=== PATIENT | female | born 1955 | race Caucasian/White ===

== ENCOUNTER 2022-12-29 06:53 | Day surgery (SDC) | payer MEDICARE, BC ==
[~2022-12-29 06:53] MED LIST: Lactated Ringers 1,000 ML IV SCH; Lidocaine 1%/Sod Bicarbonate in NS 8.4% 1 ML Syringe IDERM PRN; Sodium Chloride 0.9% 10 ML Syringe FLUSH PRN; Sodium Chloride 0.9% 10 ML Syringe FLUSH SCH
[2022-12-29] MEDS ORDERED: Bupivacaine 0.25%/EPINEPHrine 1:200,000 30 ML SDV ONE (07:19)
[2022-12-29] MEDS ORDERED: fentaNYL 100 MCG/2 ML SDV ONE (07:24)
[2022-12-29] MEDS ORDERED: Lidocaine 1% 5 ML VIAL ONE (07:24)
[2022-12-29] MEDS ORDERED: Dexamethasone 4 MG/ML 5 ML MDV ONE (07:24)
[2022-12-29] MEDS ORDERED: Midazolam 1 MG/ML 2 ML SDV ONE (07:24)
[2022-12-29] MEDS ORDERED: Rocuronium 50 MG/5 ML Vial ONE (07:24)
[2022-12-29] MEDS ORDERED: Ketorolac 30 MG/ML SDV ONE (07:24)
[2022-12-29] MEDS ORDERED: diphenhydrAMINE 50 MG/ML SDV ONE (07:24)
[2022-12-29] MEDS ORDERED: Ondansetron 4 MG/2 ML SDV ONE (07:24)
[2022-12-29] MEDS ORDERED: Propofol 200 MG/20 ML SDV ONE (07:24)
[2022-12-29] MEDS ORDERED: ceFAZolin 2 GM Vial ONE (07:58)
[2022-12-29] MEDS ORDERED: Lactated Ringers 1,000 ML ONE ×2 (08:07)
[2022-12-29] MEDS ORDERED: ePHEDrine 50 MG/ML SDV ONE (08:09)
[2022-12-29] MEDS ORDERED: Ondansetron 4 MG/2 ML SDV IVPUSH PRN ×2 (08:16→08:26)
[2022-12-29] MEDS ORDERED: HYDROmorphone 0.5 MG/0.5 ML Syringe IVPUSH PRN (08:16)
[2022-12-29] MEDS ORDERED: fentaNYL 100 MCG/2 ML SDV IVPUSH PRN (08:16)
[2022-12-29] MEDS ORDERED: Sugammadex Sodium 200 MG/2 ML VIAL ONE (08:20)
[2022-12-29] MEDS ORDERED: Acetaminophen/oxyCODONE 325-5 MG Tab PO PRN (08:26)
[2022-12-29] MEDS ORDERED: Ketorolac 30 MG/ML SDV IVPUSH SCH (08:30)
[2022-12-29] MEDS ORDERED: Ibuprofen 600 MG Tab PO PRN (12:30)
== END 2022-12-29 11:21 | disposition home or self-care (01) ==
LOC: JD.SDS 06:53
PROVIDERS: ATTEND Obstetrics & Gynecology
DX: N81.2 Incomplete uterovaginal prolapse (principal); N81.6 Rectocele; I10 Essential (primary) hypertension; E03.9 Hypothyroidism, unspecified; M85.80 Other specified disorders of bone density and structure, unspecified site; Z88.2 Allergy status to sulfonamides; Z79.890 Hormone replacement therapy; Z79.899 Other long term (current) drug therapy
CPT/HCPCS: 57240; 81003; J0690; J1100; J1200; J1885; J2250; J2405; J2704; J3010; J3490; J7120; 00942